=== PATIENT | female | born 1955 | race Caucasian/White ===

== ENCOUNTER 2019-07-23 22:22 | Inpatient (IN) | payer BC, OTHER ==
[2019-07-23] MEDS ORDERED: Ondansetron 4 MG/2 ML SDV IVPUSH ONE (22:34)
[2019-07-23] MEDS: Sodium Chloride 0.9% 10 ML Syringe FLUSH PRN (22:47)
[2019-07-23 23:07] LABS: CHLORIDE,CL 104 mmol/L (98-107); SODIUM,NA 142 mmol/L (136-145)
[2019-07-23] MEDS ORDERED: Sodium Chloride 0.9% 1,000 ML IV ONE (23:27)
--- NOTE | 2019-07-23 23:27 | EDM.PDOC ---
ED HPI GENERAL MEDICAL PROBLEM - General Chief Complaint: Abdominal Pain Stated Complaint: ABD PAIN, VOMITING Time Seen by Provider: 07/23/19 22:56 Source of Information: Reports: Patient History Limitations: Reports: No Limitations - History of Present Illness INITIAL COMMENTS - FREE TEXT/NARRATIVE: Sudden onset of abdominal pain, nausea/emesis that started around 4 hours ago. 5 episodes of emesis. No bowel changes. Feels constipated. Has chronic constipation and takes laxatives every few days. No fevers. Has not had similar pain/emesis before related to her constipation. Pain is in entire abdomen and epigastric area. Does not really change with drinking/emesis. Denies other pain complaints. No HEENT changes such as headache/vision change/ sinus pain/sore throat/runny nose. No Resp changes such as new cough/wheeze/SOB. Recently treated for pneumonia with Zpack but says that symptoms almost gone. No CV changes such as palpitations/chest pain/dizziness No UTI changes/flank pain/hematuria. No body aches/neuro changes. Onset: Sudden - Related Data Allergies Allergy/AdvReac Type Severity Reaction Status Date / Time No Known Allergies Allergy Verified 07/23/19 22:48 Home Meds: Home Meds Albuterol Sulfate [Albuterol Sulfate Hfa] 1 - 2 inh INH Q4H PRN 07/23/19 [ History] Alendronate Sodium 70 mg PO Q7D 07/23/19 [History] Benazepril [Lotensin] 10 mg PO DAILY 07/23/19 [History] Cyclobenzaprine [Flexeril] 10 mg PO TID PRN 07/23/19 [History] Fluticasone/Salmeterol [Advair 250-50 Diskus] 1 inh INH BID 07/23/19 [History] Lactobacillus Rhamnosus GG [Culturelle] 1 cap PO DAILY 07/23/19 [History] Tiotropium [place] [Spiriva Respimat] 2 inh INH DAILY 07/23/19 [History] Past Medical History Cardiovascular History: Reports: Hypertension Respiratory History: Reports: COPD Gastrointestinal History: Reports: Chronic Constipation Musculoskeletal History: Reports: Back Pain, Chronic (scoliosis) Social & Family History - Tobacco Use Smoking Status *Q: Former Smoker - Caffeine Use Caffeine Use: Reports: Tea (Quit soda consumption a week ago) - Alcohol Use Alcohol Use History: No - Recreational Drug Use Recreational Drug Use: No Drug Use in Last 12 Months: No ED ROS GENERAL - Review of Systems Review Of Systems: Comprehensive ROS is negative, except as noted in HPI. ED EXAM, GENERAL - Physical Exam Exam: See Below Exam Limited By: No Limitations General Appearance: Alert, Mild Distress Eye Exam: Bilateral Eye: EOMI, PERRL Ears: Hearing Grossly Normal Nose: No: Nasal Deformity, Nasal Swelling, Nasal Drainage Throat/Mouth: Normal Lips, Normal Voice, No Airway Compromise Head: Atraumatic, Normocephalic Neck: Supple, Full Range of Motion Respiratory/Chest: No Respiratory Distress, Lungs Clear, Normal Breath Sounds, No Accessory Muscle Use, Chest Non-Tender Cardiovascular: Normal Peripheral Pulses, Regular Rate, Rhythm, No Edema, No Murmur GI/Abdominal: No Distention, Tender (tender throughout entire abdomen. Slightly worse LLQ and periumbilically. ), Abnormal Bowel Sounds (decreased throughout). No: Guarding, Rigid, Rebound (Female) Exam: Deferred Rectal (Female) Exam: Deferred Extremities: Normal Range of Motion, Normal Capillary Refill Neurological: Alert, Oriented, Normal Cognition Psychiatric: Normal Affect, Normal Mood Skin Exam: Warm, Dry, Intact, Normal Color EKG INTERPRETATION EKG Date: 07/23/19 Time: 23:07 Rhythm: NSR Rate (Beats/Min): 72 [place]: Normal P-Wave: Present QRS: LBBB ST-T: Other (no obvious ST changes suggestive of ischemia noted) QT: Normal Comparison: NA - No Prior EKG Course - Vital Signs Last Recorded V/S: Last Vital Signs Temp 35.7 C L 07/23/19 22:25 Pulse 79 07/23/19 22:25 Resp 20 07/23/19 22:25 BP 109/88 07/23/19 22:25 Pulse Ox - Orders/Labs/Meds Orders: Active Orders 24 hr Category Date Time Status EKG Documentation Completion [RC] ASDIRECTED Care 07/23/19 23:03 Active Abdomen 2V AP Flat Upright [CR] Stat Exams 07/23/19 22:35 Taken TROPONIN I [CHEM] Stat Lab 07/23/19 23:10 Ordered UA W/MICROSCOPIC [URIN] Stat Lab 07/23/19 23:00 Results Sodium Chloride 0.9% [Saline Flush] Med 07/23/19 22:34 Active 10 ml FLUSH ASDIRECTED PRN Saline Lock Insert [OM.PC] Routine Oth 07/23/19 22:34 Ordered Medication Orders Sodium Chloride (Saline Flush) 10 ml FLUSH ASDIRECTED PRN PRN Reason: Keep Vein Open Last Admin: 07/23/19 22:47 Dose: 10 ml Labs: Laboratory Tests 07/23/19 07/23/19 07/23/19 Range/Units 22:40 22:40 23:00 WBC 25.7 H (4.0-10.2) K/uL RBC 4.94 (3.77-5.09) M/uL Hgb 14.3 (11.7-15.5) g/dL Hct 43.7 (34.0-46.0) % MCV 88.5 (84.0-98.0) fL MCH 28.9 (28.2-33.3) pg MCHC 32.7 (31.7-36.0) g/dL RDW 12.9 (11.2-14.1) % Plt Count 406 H (150-350) K/uL Neut % (Auto) 90.6 H (45.0-80.0) % Lymph % (Auto) 5.3 L (10.0-50.0) % [place] % (Auto) 3.4 (2.0-14.0) % Eos % (Auto) 0.6 (0.0-5.0) % Baso % (Auto) 0.1 (0.0-2.0) % Neut # (Auto) 23.27 H (1.40-7.00) K/uL Lymph # (Auto) 1.37 (0.50-3.50) K/uL [place] # (Auto) 0.87 (0.00-1.00) K/uL Eos # (Auto) 0.16 (0.00-0.50) K/uL Baso # (Auto) 0.02 (0.00-0.20) K/uL Sodium 142 (136-145) mmol/L Potassium 4.4 (3.5-5.1) mmol/L Chloride 104 (98-107) mmol/L Carbon Dioxide 23.8 (21.0-32.0) mmol/L BUN 26 H (7-18) mg/dL Creatinine 0.97 (0.51-1.17) mg/dL Est Cr Clr Drug Dosing TNP Estimated GFR (MDRD) 58 mL/min Glucose 162 H (74-106) mg/dL Calcium 9.5 (8.5-10.1) mg/dL Total Bilirubin 0.4 (0.2-1.0) mg/dL AST 12 L (15-37) U/L ALT 22 (12-78) U/L Alkaline Phosphatase 76 (46-116) IU/L Total Protein 7.5 (6.4-8.2) g/dL Albumin 3.9 (3.4-5.0) g/dL Urine Color Yellow Urine Appearance Clear Urine pH 5.5 (5.0-9.0) Ur Specific Media 1.025 (1.005-1.030) Urine Protein Trace H (NEGATIVE) mg/dL Urine Glucose (UA) Negative (NEGATIVE) mg/dL Urine Ketones 40 H (NEGATIVE) mg/dL Urine Occult Blood Trace-intact H (NEGATIVE) Urine Nitrite Negative (NEGATIVE) Urine Bilirubin Small H (NEGATIVE) Urine Urobilinogen 0.2 (0.2-1.0) E.U./dL Ur Leukocyte Esterase Negative (NEGATIVE) Meds: Medications Generic Name Dose Route Start Last Admin Trade Name Freq PRN Reason Stop Dose Admin Sodium Chloride 10 ml 07/23/19 22:34 07/23/19 22:47 Saline Flush FLUSH 10 ml ASDIRECTED PRN Administration Keep Vein Open Discontinued Medications Generic Name Dose Route Start Last Admin Trade Name Freq PRN Reason Stop Dose Admin Ondansetron HCl 4 mg 07/23/19 22:34 07/23/19 22:44 Zofran IVPUSH 07/23/19 22:35 4 mg ONETIME ONE Administration - Radiology Interpretation Free Text/Narrative:: Plain films of abdomen show several air/fluid levels. No sign of acute obstruction noted. Large amount stool present. - Re-Assessments/Exams Free Text/Narrative Re-Assessment/Exam: 07/23/19 23:37 Patient received IV Zofran and basic labs/xray ordered. Troponin/Chem overall unremarkable. White count elevated to 25. UA showed ketones but did not suggest UTI. Lactic acid added. Differential discussed with patient. Given abrupt onset of symptoms/emesis this could be viral in nature/gastroenteritis. It does seem to be a bit severe to be due to constipation. Currently discomfort in abdomen is crampy and widespread. It does not localize to the RLQ. CT of abdomen discussed with patient to rule out appy/other acute process. She declined this at this time and prefers to wait to see if symptoms change/improve /worsen. Just had recent chest CT as part of her pneumonia workup. She is willing to be admitted observation however for IV fluids along with pain/nausea control. 07/23/19 23:56 Lactic acid normal Departure - Departure Time of Disposition: 23:41 Disposition: Refer to Observation Condition: Good Clinical Impression: Abdominal pain Qualifiers: Abdominal location: generalized Qualified Code(s): R10.84 - Generalized abdominal pain - Discharge Information *PRESCRIPTION DRUG MONITORING PROGRAM REVIEWED*: Not Applicable *COPY OF PRESCRIPTION DRUG MONITORING REPORT IN PATIENT BERNARDO: Not Applicable Referrals: Da Buchanan MD [Primary Care Provider] - Sepsis Event Note - Evaluation Sepsis Screening Result: No Definite Risk - Focused Exam Vital Signs: Vital Signs Temp Pulse Resp BP 07/23/19 22:25 35.7 C L 79 20 109/88 Date Exam was Performed: 07/23/19 Time Exam was Performed: 23:14 - Problem List & Annotations (1) Abdominal pain SNOMED Code(s): 21485183 Code(s): R10.9 - UNSPECIFIED ABDOMINAL PAIN Status: Acute Priority: High Onset Date: 07/23/19 Annotation/Comment:: Elevated white count. No fever. Emesis but no bowel changes. Declines CT at this time. Would like a laxitive to see if having bowel movement improves pain. Cannot rule out viral gastroenteritis or other potential causes for symptoms. Consider CT tomorrow if no signicant improvement is noted. Qualifiers: Abdominal location: generalized Qualified Code(s): R10.84 - Generalized abdominal pain (2) Chronic constipation SNOMED Code(s): 602652466 Code(s): K59.09 - OTHER CONSTIPATION Status: Chronic Priority: High Annotation/Comment:: Stool noted on xray. Patient requests laxitive as she feels this pain could be related to constipation issues. Consider laxative if emesis improves. Observe for changes (3) COPD (chronic obstructive pulmonary disease) SNOMED Code(s): 25542345 Code(s): J44.9 - CHRONIC OBSTRUCTIVE PULMONARY DISEASE, UNSPECIFIED Status : Chronic Priority: Low Annotation/Comment:: Recent pneumonia. Patient finished course of Z-pack. Has improved significantly per self report. Continue patient's usual meds. Qualifiers: COPD type: emphysema (4) Chronic back pain SNOMED Code(s): 199461686 Code(s): M54.9 - DORSALGIA, UNSPECIFIED; G89.29 - OTHER CHRONIC PAIN Status : Chronic Priority: Low Annotation/Comment:: stable at this time Qualifiers: Back pain location: low back pain (5) Scoliosis SNOMED Code(s): 642983155 Code(s): M41.9 - SCOLIOSIS, UNSPECIFIED Status: Chronic Priority: Low Qualifiers: Scoliosis type: unspecified scoliosis Spinal region: thoracolumbar Qualified Code(s): M41.9 - Scoliosis, unspecified (6) HTN (hypertension) SNOMED Code(s): 02081092 Code(s): I10 - ESSENTIAL (PRIMARY) HYPERTENSION Status: Chronic Priority : Low Annotation/Comment:: observe trends Qualifiers: Hypertension type: essential hypertension Qualified Code(s): I10 - Essential (primary) hypertension - Problem List Review Problem List Initiated/Reviewed/Updated: Yes - My Orders Last 24 Hours: My Active Orders 07/23/19 22:34 Sodium Chloride 0.9% [Saline Flush] 10 ml FLUSH ASDIRECTED PRN Saline Lock Insert [OM.PC] Routine 07/23/19 22:35 Abdomen 2V AP Flat Upright [CR] Stat 07/23/19 23:00 UA W/MICROSCOPIC [URIN] Stat 07/23/19 23:03 EKG Documentation Completion [RC] ASDIRECTED 07/23/19 23:10 TROPONIN I [CHEM] Stat - Assessment/Plan Admission H&P: Please use this note as an admission H&P Last 24 Hours: My Active Orders 07/23/19 22:34 Sodium Chloride 0.9% [Saline Flush] 10 ml FLUSH ASDIRECTED PRN Saline Lock Insert [OM.PC] Routine 07/23/19 22:35 Abdomen 2V AP Flat Upright [CR] Stat 07/23/19 23:00 UA W/MICROSCOPIC [URIN] Stat 07/23/19 23:03 EKG Documentation Completion [RC] ASDIRECTED 07/23/19 23:10 TROPONIN I [CHEM] Stat Assessment:: As above Patient stable and suitable for general supervision. Plan: as above IV fluids/Zofran/pain management. Observe for changes.
[2019-07-23] MEDS ORDERED: Morphine 2 MG/ML Syringe IVPUSH ONE (23:28)
[2019-07-24] MEDS ORDERED: Magnesium Citrate Solution 296 ML Bottle PO ONE ×2 (00:09→14:47)
[2019-07-24] MEDS ORDERED: Polyethylene Glycol 3350 Powder 17 GM Packet PO ONE (00:10)
[2019-07-24] MEDS ORDERED: Sodium Chloride 0.9% 1,000 ML IV ONE (00:11)
[2019-07-24] MEDS ORDERED: Cyclobenzaprine 10 MG Tab PO PRN (00:12)
[2019-07-24] MEDS ORDERED: Alendronate 70 MG Tab PO SCH (00:15)
[2019-07-24] MEDS: Albuterol 8 GM Inhaler INH PRN ×5 (00:49→22:23)
[2019-07-24] MEDS: Formoterol/Mometasone 200-5 MCG 8.8 GM Inhaler IH SCH ×3 (00:49→17:08)
[2019-07-24] MEDS ORDERED: Polyethylene Glycol 3350 Powder 17 GM Packet ONE (03:41)
[2019-07-24] MEDS ORDERED: Magnesium Citrate Solution 296 ML Bottle ONE (03:42)
[2019-07-24] MEDS: Lisinopril 10 MG Tab PO SCH (08:28)
[2019-07-24] MEDS: Lactobacillus Rhamnosus GG (Probiotic) Cap PO SCH (08:28)
[2019-07-24] MEDS: Tiotropium Inhaler 18 MCG Inhalation Powder Cap Kit of 5 INH SCH (08:29)
[2019-07-24] MEDS: Ondansetron 4 MG/2 ML SDV IVPUSH PRN ×2 (08:29→14:48)
[2019-07-24] MEDS: Sodium Chloride 0.9% 10 ML Syringe FLUSH PRN ×2 (08:30→15:28)
[2019-07-24] MEDS: Morphine 2 MG/ML Syringe IVPUSH PRN ×3 (08:30→22:15)
[2019-07-24] MEDS ORDERED: Iopamidol 612 MG/ML 100 ML Bottle IVPUSH ONE (10:00)
[2019-07-24] MEDS ORDERED: Diatrizoate Meglumine/Diatrizoate Sodium 37% 30 ML Bottle PO ONE (10:30)
--- NOTE | 2019-07-24 14:35 | PCM.SN ---
- Free Text/Narrative Note: Pancreatitis confirmed by CT. Patient does not wish to be transferred. Admit from observation status for continued IV hydration and pain control. Consider NG tube if emesis returns. NPO/Ice chips only.
[2019-07-24] MEDS: Sodium Chloride 0.9% 1,000 ML IV SCH ×2 (14:49→21:39)
[2019-07-24] MEDS ORDERED: Promethazine 25 MG/ML SDV IM PRN (15:00)
[2019-07-24] MEDS: Pantoprazole 40 MG Vial IVPUSH SCH (15:25)
[2019-07-24] MEDS: Bisacodyl 5 MG Tab PO PRN (15:25)
[2019-07-24] MEDS: Famotidine 20 MG/2 ML SDV IVPUSH SCH (15:25)
[2019-07-24] MEDS ORDERED: Bisacodyl 10 MG Supp RECTAL PRN (21:51)
[2019-07-25] MEDS: Ketorolac 30 MG/ML SDV IVPUSH PRN ×2 (01:26→07:41)
[2019-07-25] MEDS: Sodium Chloride 0.9% 10 ML Syringe FLUSH PRN ×4 (01:26→23:52)
[2019-07-25] MEDS: Albuterol/Ipratropium 3.0-0.5 MG/3 ML Neb Soln NEB PRN (01:43)
[2019-07-25] MEDS ORDERED: Magnesium Hydroxide 400 MG/5 ML Susp 30 ML Cup PO PRN (01:46)
[2019-07-25] MEDS: Morphine 2 MG/ML Syringe IVPUSH PRN (04:21)
[2019-07-25] MEDS: Sodium Chloride 0.9% 1,000 ML IV SCH ×2 (04:24→11:47)
[2019-07-25 07:42] LABS: CHLORIDE,CL 106 mmol/L (98-107); SODIUM,NA 140 mmol/L (136-145)
[2019-07-25] MEDS: Enoxaparin 30 MG/0.3 ML Syringe SUBCUT SCH (07:46)
[2019-07-25] MEDS: Pantoprazole 40 MG Vial IVPUSH SCH ×2 (07:47→20:07)
[2019-07-25] MEDS: Famotidine 20 MG/2 ML SDV IVPUSH SCH ×2 (07:47→20:07)
[2019-07-25] MEDS: Lisinopril 10 MG Tab PO SCH (07:47)
[2019-07-25] MEDS: Lactobacillus Rhamnosus GG (Probiotic) Cap PO SCH (07:47)
[2019-07-25] MEDS: Bisacodyl 5 MG Tab PO PRN (07:49)
[2019-07-25] MEDS: Formoterol/Mometasone 200-5 MCG 8.8 GM Inhaler IH SCH ×2 (07:52→19:16)
[2019-07-25] MEDS: Tiotropium Inhaler 18 MCG Inhalation Powder Cap Kit of 5 INH SCH (07:52)
[2019-07-25] MEDS: Albuterol 8 GM Inhaler INH PRN (07:55)
[2019-07-25] MEDS ORDERED: cefTRIAXone 1 GM in Sodium Chloride 0.9% 100 ML IV SCH (11:15)
[2019-07-25] MEDS: metroNIDAZOLE/Normal Saline 500 MG in Premix Bag 1 BAG IV SCH ×2 (11:47→20:04)
--- NOTE | 2019-07-25 11:51 | PCM.PN ---
- General Info Date of Service: 07/25/19 Admission Dx/Problem (Free Text): 1. Pancreatitis 2. COPD 3. Chronic constipation Functional Status: Reports: Pain Controlled, New Symptoms (Fever), Incentive Spirometry. Denies: Tolerating Diet (Nothing by mouth), Ambulating, Urinating Pain Score: 8 (With inspiration and palpation otherwise no discomfort) - Review of Systems General: Reports: Fever, Chills. Denies: Appetite (Nothing by mouth) HEENT: Reports: No Symptoms. Denies: Ear Pain, Eye Pain, Headaches, Sinus Congestion, Sore Throat, Rhinitis, Visual Changes Pulmonary: Reports: Pleuritic Chest Pain (Left inferior secondary to pancreatitis), Cough. Denies: Shortness of Breath, Sputum, Hemoptysis, Wheezing Cardiovascular: Reports: No Symptoms. Denies: Chest Pain, Palpitations, Dyspnea on Exertion, Orthopnea, PND, Edema, Lightheadedness Gastrointestinal: Reports: Abdominal Pain, Constipation, Nausea. Denies: Decreased Appetite, Difficulty Swallowing, Hematochezia, Melena, Vomiting Genitourinary: Reports: No Symptoms. Denies: Dysuria, Frequency, Burning, Pain , Urgency, Incontinence, Hematuria, Retention, Flank Pain Musculoskeletal: Reports: No Symptoms. Denies: Neck Pain, Shoulder Pain, Arm Pain, Back Pain, Leg Pain Skin: Denies: Jaundice, Diaphoresis, Bruising, Pruritis, Rash Neurological: Reports: No Symptoms. Denies: Confusion, Numbness, Paresthesia, Tingling, Weakness Psychiatric: Reports: No Symptoms. Denies: Confusion, Agitation, Cravings, Hallucinations - Patient Data Vitals - Most Recent: Last Vital Signs Temp 37.4 C 07/25/19 08:00 Pulse 98 07/25/19 08:00 Resp 19 07/25/19 08:00 BP 123/76 07/25/19 08:00 Pulse Ox 96 07/25/19 08:00 Vital Signs - 24 hr 07/24/19 07/24/19 07/24/19 16:00 18:00 20:00 Temperature [ 38.6 C H 38.2 C H 38.2 C H Temporal] Pulse, 93 97 95 Peripheral [ Right Pulse Oximetry] Respiratory 17 16 16 Rate Blood Pressure Blood Pressure 144/70 H 127/78 143/86 H [Right Upper Arm] O2 Sat by Pulse 93 L 93 L 93 L Oximetry O2 Sat by Pulse Oximetry [ Nasal Cannula] 07/25/19 07/25/19 07/25/19 00:00 01:45 04:00 Temperature [ 38.2 C H 37.2 C Temporal] Pulse, 114 H 105 H Peripheral [ Right Pulse Oximetry] Respiratory 32 H 20 Rate Blood Pressure Blood Pressure 129/84 123/72 [Right Upper Arm] O2 Sat by Pulse 88 L 95 Oximetry O2 Sat by Pulse 88 L Oximetry [ Nasal Cannula] 07/25/19 07/25/19 07:47 08:00 Temperature [ 37.4 C Temporal] Pulse, 98 Peripheral [ Right Pulse Oximetry] Respiratory 19 Rate Blood Pressure 123/76 Blood Pressure 123/76 [Right Upper Arm] O2 Sat by Pulse 96 Oximetry O2 Sat by Pulse Oximetry [ Nasal Cannula] Weight - Most Recent: 55.066 kg I&O - Last 24 Hours: Intake & Output 07/24/19 07/25/19 07/25/19 22:59 06:59 14:59 Intake Total 2363 Output Total 900 300 Balance -900 2363 -300 Imaging Impressions - Last 24 Hours: Acute abdominal x-rays shows evidence of moderate to severe diffuse stool, however no fluid levels, free air, ileus, or obstruction. No cardiomegaly or CHF however mild left pleural effusion. Moderate COPD changes with no other significant pulmonary infiltrates, pneumothorax, etc. Moderate scoliosis and osteoarthritic changes noted. Also note status post cholecystectomy with surgical clips in right upper quadrant. Lab Results Last 24 Hours: Laboratory Results - last 24 hr 07/24/19 07/24/19 07/25/19 Range/Units 14:05 14:05 07:17 WBC 20.1 H (4.0-10.2) K/uL RBC 4.56 (3.77-5.09) M/uL Hgb 13.2 (11.7-15.5) g/dL Hct 40.1 (34.0-46.0) % MCV 87.9 (84.0-98.0) fL MCH 28.9 (28.2-33.3) pg MCHC 32.9 (31.7-36.0) g/dL RDW 12.9 (11.2-14.1) % Plt Count 309 D (150-350) K/uL Neut % (Auto) 89.2 H (45.0-80.0) % Lymph % (Auto) 5.9 L (10.0-50.0) % [place] % (Auto) 4.9 (2.0-14.0) % Eos % (Auto) 0.0 (0.0-5.0) % Baso % (Auto) 0.0 (0.0-2.0) % Neut # (Auto) 17.91 H (1.40-7.00) K/uL Lymph # (Auto) 1.18 (0.50-3.50) K/uL [place] # (Auto) 0.98 (0.00-1.00) K/uL Eos # (Auto) 0.01 (0.00-0.50) K/uL Baso # (Auto) 0.01 (0.00-0.20) K/uL PT 10.8 (9.5-12.0) SEC INR 1.1 Sodium (136-145) mmol/L Potassium (3.5-5.1) mmol/L Chloride (98-107) mmol/L Carbon Dioxide (21.0-32.0) mmol/L BUN (7-18) mg/dL Creatinine (0.51-1.17) mg/dL Est Cr Clr Drug Dosing mL/min Estimated GFR (MDRD) mL/min Glucose (74-106) mg/dL Calcium (8.5-10.1) mg/dL Total Bilirubin (0.2-1.0) mg/dL AST (15-37) U/L ALT (12-78) U/L Alkaline Phosphatase (46-116) IU/L Total Protein (6.4-8.2) g/dL Albumin (3.4-5.0) g/dL Amylase 1279 H (25-115) U/L Lipase > 1500 H (73-393) U/L 07/25/19 07/25/19 Range/Units 07:17 07:17 WBC 22.9 H (4.0-10.2) K/uL RBC 4.32 (3.77-5.09) M/uL Hgb 12.6 (11.7-15.5) g/dL Hct 38.5 (34.0-46.0) % MCV 89.1 (84.0-98.0) fL MCH 29.2 (28.2-33.3) pg MCHC 32.7 (31.7-36.0) g/dL RDW 13.1 (11.2-14.1) % Plt Count 300 (150-350) K/uL Neut % (Auto) 88.5 H (45.0-80.0) % Lymph % (Auto) 5.8 L (10.0-50.0) % [place] % (Auto) 5.5 (2.0-14.0) % Eos % (Auto) 0.2 (0.0-5.0) % Baso % (Auto) 0.0 (0.0-2.0) % Neut # (Auto) 20.22 H (1.40-7.00) K/uL Lymph # (Auto) 1.33 (0.50-3.50) K/uL [place] # (Auto) 1.25 H (0.00-1.00) K/uL Eos # (Auto) 0.04 (0.00-0.50) K/uL Baso # (Auto) 0.01 (0.00-0.20) K/uL PT (9.5-12.0) SEC INR Sodium 140 (136-145) mmol/L Potassium 4.3 (3.5-5.1) mmol/L Chloride 106 (98-107) mmol/L Carbon Dioxide 24.0 (21.0-32.0) mmol/L BUN 21 H (7-18) mg/dL Creatinine 0.69 (0.51-1.17) mg/dL Est Cr Clr Drug Dosing 72.06 mL/min Estimated GFR (MDRD) > 60 mL/min Glucose 86 (74-106) mg/dL Calcium 8.1 L (8.5-10.1) mg/dL Total Bilirubin 0.6 (0.2-1.0) mg/dL AST 35 (15-37) U/L ALT 33 (12-78) U/L Alkaline Phosphatase 71 (46-116) IU/L Total Protein 5.7 L (6.4-8.2) g/dL Albumin 2.7 L (3.4-5.0) g/dL Amylase 759 H (25-115) U/L Lipase 3405 H (73-393) U/L Blood Cultures 2 were collected Additional repeat UA with culture and sensitivity already ordered today with collection pending [place] Results Last 24 Hours: Microbiology 07/25/19 09:45 Group A Streptococcus Rapid Screen - Final Throat NEGATIVE STREP A SCREEN REFERENCE RANGE: NEGATIVE 07/25/19 09:45 Influenza Type A Antigen Screen - Final Nasal, Unspecified NEGATIVE INFLUENZA A VIRUS AG REFERENCE RANGE: NEGATIVE Influenza Type B Antigen Screen - Final NEGATIVE INFLUENZA B VIRUS AG REFERENCE RANGE: NEGATIVE Specimen for COVID-19 collected Med Orders - Current: Current Medications Albuterol (Proventil Neb Soln) 2.5 mg INH Q2H PRN PRN Reason: SHORTNESS OF BREATH Albuterol/Ipratropium (Duoneb 3.0-0.5 Mg/3 Ml) 3 ml NEB Q4HRRT PRN PRN Reason: Dyspnea Last Admin: 07/25/19 01:43 Dose: 3 ml Albuterol/Ipratropium (Duoneb 3.0-0.5 Mg/3 Ml) 3 ml NEB Q6HRRT [facility] Alendronate Sodium (Fosamax) 70 mg PO Q7D [facility] Last Admin: 07/24/19 00:53 Dose: Not Given Bisacodyl (Dulcolax) 5 mg PO DAILY PRN PRN Reason: Constipation Last Admin: 07/25/19 07:49 Dose: 5 mg Bisacodyl (Dulcolax) 10 mg RECTAL BID PRN PRN Reason: Constipation Last Admin: 07/24/19 22:15 Dose: 10 mg Cyclobenzaprine HCl (Flexeril) 10 mg PO TID PRN PRN Reason: Muscle Spasm Enoxaparin Sodium (Lovenox) 30 mg SUBCUT DAILY [facility] Last Admin: 07/25/19 07:46 Dose: 30 mg Famotidine (Pepcid) 20 mg IVPUSH Q12H [facility] Sodium Chloride (Normal Saline) 1,000 mls @ 150 mls/hr IV ASDIRECTED [facility] Last Admin: 07/25/19 04:24 Dose: 150 mls/hr Metronidazole 500 mg/ Premix 100 mls @ 100 mls/hr IV Q8H [facility] Ceftriaxone Sodium 1 gm/ (Sodium Chloride) 100 mls @ 200 mls/hr IV Q12H [facility] Potassium Chloride/Dextrose/Sod Cl (D5 1/2 Ns W/ 20 Meq/L Kcl) 1,000 mls @ 100 mls/hr IV ASDIRECTED [facility] Ketorolac Tromethamine (Toradol) 30 mg IVPUSH Q6H PRN PRN Reason: Pain (moderate 4-6) Last Admin: 07/25/19 07:41 Dose: 30 mg Lactobacillus Rhamnosus (Culturelle) 1 cap PO DAILY [facility] Last Admin: 07/25/19 07:47 Dose: 1 cap Lisinopril (Prinivil) 10 mg PO DAILY [facility] Last Admin: 07/25/19 07:47 Dose: 10 mg Magnesium Hydroxide (Milk Of Magnesia) 30 ml PO BID PRN PRN Reason: Constipation Last Admin: 07/25/19 02:02 Dose: 30 ml Mometasone Furoate/Formoterol Fumar (Dulera 200-5 Mcg) 2 puff IH BID [facility] Last Admin: 07/25/19 07:52 Dose: 2 inh Morphine Sulfate (Morphine) 2 mg IVPUSH Q2H PRN PRN Reason: Pain Last Admin: 07/25/19 04:21 Dose: 2 mg Ondansetron HCl (Zofran) 4 mg IVPUSH Q6H PRN PRN Reason: Nausea/Vomiting Last Admin: 07/24/19 14:48 Dose: 4 mg Pantoprazole Sodium (Protonix Iv) 40 mg IVPUSH Q12H [facility] Polyethylene Glycol (Miralax) 17 gm PO DAILY [facility] Sodium Chloride (Saline Flush) 10 ml FLUSH ASDIRECTED PRN PRN Reason: Keep Vein Open Last Admin: 07/25/19 01:26 Dose: 10 ml Tiotropium [place] (Spiriva Handihaler) 18 mcg INH DAILY [facility] Last Admin: 07/25/19 07:52 Dose: 18 mcg Discontinued Medications Albuterol (Ventolin Hfa) 0 gm INH Q4H PRN PRN Reason: Wheezing Last Admin: 07/25/19 07:55 Dose: 1 inh Diatrizoate Meglum/Diatrizoate Sod (Gastrografin 37%) 30 ml PO ONETIME ONE Stop: 07/24/19 10:31 Last Admin: 07/24/19 11:35 Dose: 30 ml Famotidine (Pepcid) 20 mg IVPUSH DAILY [facility] Last Admin: 07/25/19 07:47 Dose: 20 mg Sodium Chloride (Normal Saline) 1,000 mls @ 999 mls/hr IV .BOLUS ONE Stop: 07/24/19 00:27 Last Admin: 07/23/19 23:32 Dose: 999 mls/hr Sodium Chloride (Normal Saline) 1,000 mls @ 200 mls/hr IV .BOLUS ONE Stop: 07/24/19 05:10 Last Admin: 07/24/19 00:51 Dose: 200 mls/hr Ceftriaxone Sodium 1 gm/ (Sodium Chloride) 100 mls @ 200 mls/hr IV [id number] ROLAND Iopamidol (Isovue-300 (61%)) 100 ml IVPUSH ONETIME ONE Stop: 07/24/19 10:01 Last Admin: 07/24/19 11:35 Dose: 100 ml Magnesium Citrate (Citrate Of Magnesia) 296 ml PO ONETIME ONE Stop: 07/24/19 00:10 Last Admin: 07/24/19 03:48 Dose: 296 ml Magnesium Citrate (Citrate Of Magnesia) Confirm Administered Dose 296 ml .ROUTE .STK-MED ONE Stop: 07/24/19 03:43 Last Admin: 07/24/19 03:49 Dose: Not Given Magnesium Citrate (Citrate Of Magnesia) 296 ml PO ONETIME ONE Stop: 07/24/19 14:48 Last Admin: 07/24/19 15:25 Dose: 296 ml Morphine Sulfate (Morphine) 2 mg IVPUSH ONETIME ONE Stop: 07/23/19 23:29 Last Admin: 07/23/19 23:31 Dose: 2 mg Ondansetron HCl (Zofran) 4 mg IVPUSH ONETIME ONE Stop: 07/23/19 22:35 Last Admin: 07/23/19 22:44 Dose: 4 mg Pantoprazole Sodium (Protonix Iv) 40 mg IVPUSH DAILY [facility] Last Admin: 07/25/19 07:47 Dose: 40 mg Polyethylene Glycol (Miralax) 17 gm PO ONETIME ONE Stop: 07/24/19 00:11 Last Admin: 07/24/19 03:48 Dose: 17 gm Polyethylene Glycol (Miralax) Confirm Administered Dose 17 gm .ROUTE .STK-MED ONE Stop: 07/24/19 03:42 Last Admin: 07/24/19 03:49 Dose: Not Given Promethazine HCl (Phenergan) 12.5 mg IM Q6H PRN PRN Reason: Nausea/Vomiting - Exam Quality Assessment: DVT Prophylaxis (Lovenox). No: Supplemental Oxygen, Central Line/PICC, Urine Catheter, Skin Breakdown, Restraints General: Alert, Oriented, Cooperative, No Acute Distress HEENT: Pupils Equal, Pupils Reactive, EOMI, Mucous Membr. Moist/[place]. No: Scleral Icterus Neck: Supple, Trachea Midline, No JVD, No Thyromegaly, +2 Carotid Pulse wo Bruit. No: Lymphadenopathy, Carotid Bruit Lungs: Rales (Left lower posterior), Rub (Left lower lobe) Cardiovascular: Regular Rate, Regular Rhythm, No Murmurs. No: Gallops, Rubs GI/Abdominal Exam: Normal Bowel Sounds, No Organomegaly, No Distention, No Abnormal Bruit, No Mass, Pelvis Stable, Tender (Moderate left upper quadrant). No: Guarding, Rigid, Rebound (Female) Exam: Deferred Back Exam: Other (Moderate scoliosis). No: CVA Tenderness (L), CVA Tenderness ( R), Muscle Spasm, Paraspinal Tenderness, Vertebral Tenderness Extremities: Normal Inspection, Normal Range of Motion, Non-Tender, No Pedal Edema, Normal Capillary Refill. No: Tuyet's Sign Peripheral Pulses: 2+: Radial (L), Radial (R), Dorsalis Pedis (L), Dorsalis Pedis (R) Skin: Warm, Dry, Intact. No: Rash, Ecchymosis Neurological: No New Focal Deficit Psy/Mental Status: Anxious (Moderate), Depressed (Mild). No: Agitated, Hallucinations, Withdrawal Symptoms Sepsis Event Note - Evaluation Sepsis Screening Result: No Definite Risk - Focused Exam Vital Signs: Vital Signs Temp Pulse Resp BP BP Pulse Ox Pulse Ox 07/25/19 08:00 37.4 C 98 19 123/76 96 07/25/19 07:47 123/76 07/25/19 04:00 37.2 C 105 H 20 123/72 95 07/25/19 01:45 88 L 07/25/19 00:00 38.2 C H 114 H 32 H 129/84 88 L Date Exam was Performed: 07/25/19 Time Exam was Performed: 12:01 - Problem List & Annotations (1) Pancreatitis SNOMED Code(s): 74354718 Code(s): K85.90 - ACUTE PANCREATITIS WITHOUT NECROSIS OR INFECTION, UNSP Status: Acute Priority: High Current Visit: Yes Onset Date: ~07/24/19 Qualifiers: Chronicity: acute Pancreatitis type: unspecified pancreatitis type Acute pancreatitis complication: no infection or necrosis Qualified Code(s): K85.90 - Acute pancreatitis without necrosis or infection, unspecified Annotation/Comment:: Progressive lipase elevation, although improved amylase. Abdominal pain is under relatively good control with current medical therapy, although I will change from IV morphine to IV Dilaudid secondary to previous history of open laparoscopic cholecystectomy and her chronic constipation by history. Note positive CT scan for acute pancreatitis with x-rays today showing significant constipation as above. She has not tolerated magnesium citrate to this point, although she does agree to reconsider this later today or tomorrow. Initiate MiraLAX therapy in the meantime. Note significant leukocytosis on admission, which does persist today. IV Rocephin and IV Flagyl therapy were initiated on 07/24 with additional increase of her previous IV Pepcid and IV Protonix regimen to a high-dose regimen already on 07/24. Patient will maintain nothing by mouth. No indication for NG tube to this point, although this may need to be considered by [facility] physician, which assumes care in the a.m. Repeat CT scan of the abdomen and pelvis depending on her clinical course. Low threshold for possible patient transferred to [place] for further GI consultation , workup, etc.. Note secondary left pleural effusion likely secondary to her acute pancreatitis. No chest pain or anginal type symptoms with no evidence of CHF. (2) COPD (chronic obstructive pulmonary disease) SNOMED Code(s): 51720839 Code(s): J44.9 - CHRONIC OBSTRUCTIVE PULMONARY DISEASE, UNSPECIFIED Status : Chronic Priority: Medium Current Visit: Yes Qualifiers: COPD type: emphysema Emphysema type: panlobular Qualified Code(s): J43.1 - Panlobular emphysema Annotation/Comment:: Recent pneumonia and hospitalization prior to admission, although improved prior to admission with previously completed course of Z-cecile. No direct known exposure to COVID 19, although the patient did come from [place], [place] in order to avoid infection with positive cases in this area. Per request of administration and intermediate staff patient placed in appropriate isolation with negative pressure room and COVID-19 protocol initiated. Note negative initial strep screens and influenza screens. IV Rocephin initiated as above. Note significant fever and leukocytosis since admission. Cultures 2 have been collected with urine specimen to be repeated with additional urine culture. Lactic acid level normal on admission and will be repeated on 07/25. (3) Chronic constipation SNOMED Code(s): 549867916 Code(s): K59.09 - OTHER CONSTIPATION Status: Chronic Priority: High Current Visit: Yes Annotation/Comment:: As above (4) Osteoarthritis SNOMED Code(s): 996936761 Code(s): M19.90 - UNSPECIFIED OSTEOARTHRITIS, UNSPECIFIED SITE Status: Chronic Priority: Medium Current Visit: Yes Qualifiers: Osteoarthritis location: multiple joints Osteoarthritis type: primary Qualified Code(s): M15.0 - Primary generalized (osteo)arthritis Annotation/Comment:: Stable by history including chronic low back pain with moderate scoliosis by today's x-rays as above. (5) Mixed anxiety depressive disorder SNOMED Code(s): 693107082 Code(s): F41.8 - OTHER SPECIFIED ANXIETY DISORDERS Status: Chronic Priority: Medium Current Visit: Yes Annotation/Comment:: By clinical exam today. No current medical therapy. Observe for now. (6) HTN (hypertension) SNOMED Code(s): 07649727 Code(s): I10 - ESSENTIAL (PRIMARY) HYPERTENSION Status: Chronic Priority : Medium Current Visit: Yes Qualifiers: Hypertension type: essential hypertension Qualified Code(s): I10 - Essential (primary) hypertension Annotation/Comment:: Blood pressures stable during this hospitalization. (7) Scoliosis SNOMED Code(s): 498442939 Code(s): M41.9 - SCOLIOSIS, UNSPECIFIED Status: Chronic Priority: Medium Current Visit: Yes Qualifiers: Scoliosis type: unspecified scoliosis Spinal region: thoracolumbar Qualified Code(s): M41.9 - Scoliosis, unspecified Annotation/Comment:: As above - Problem List Review Problem List Initiated/Reviewed/Updated: Yes - My Orders Last 24 Hours: My Active Orders 07/25/19 09:00 Isolation [COMM] Routine 07/25/19 09:45 CULTURE STREP A CONFIRMATION [RM] Stat STREP SCRN A RAPID W CULT CONF [RM] Stat 07/25/19 11:08 CULTURE BLOOD [BC] Stat CULTURE BLOOD [BC] Stat Blood Culture x2 Reflex Set [OM.PC] Urgent 07/25/19 11:10 CULTURE URINE [RM] Routine URINALYSIS W/MICROSCOPIC [UA W/MICROSCOPIC] [URIN] Routine 07/25/19 11:15 Famotidine [Pepcid] 20 mg IVPUSH Q12H Pantoprazole [ProTONIX IV] 40 mg IVPUSH Q12H metroNIDAZOLE/Normal Saline [Flagyl 500 MG in NS 100 ML] 500 mg Premix Bag 1 bag IV Q8H 07/25/19 11:18 cefTRIAXone [Rocephin] 1 gm Sodium Chloride 0.9% [Normal Saline] 100 ml IV Q12H 07/25/19 11:19 RT Aerosol Therapy [RC] ASDIRECTED Albuterol [Proventil Neb Soln] 2.5 mg INH Q2H PRN 07/25/19 11:24 Communication Order [RC] ROUTINE Intake and Output Strict [RC] ASDIRECTED 07/25/19 11:29 Communication Order [RC] ROUTINE 07/25/19 11:30 D5 1/2 NS w/ 20 mEq/L KCl 1,000 ml IV ASDIRECTED polyethylene glycoL 3350 [MiraLAX] 17 gm PO DAILY 07/25/19 14:00 Albuterol/Ipratropium [DuoNeb 3.0-0.5 MG/3 ML] 3 ml NEB Q6HRRT 07/26/19 05:11 AMYLASE [CHEM] Routine CBC WITH AUTO DIFF [HEME] Routine COMPREHENSIVE METABOLIC PN,CMP [CHEM] Routine LACTATE SEPSIS W/ REFLEX [CHEM] Routine LIPASE [CHEM] Routine MAGNESIUM [CHEM] Routine - Assessment Assessment:: As above - Plan Plan:: As above. Extensive precautions were given to the patient, who is in agreement with the treatment plan. The patient will require about 2-3 days of inpatient/ acute care secondary to multiple health problems as above with possible hospital transfer to [place] as above. [facility] physician assumes care in the a.m..
[2019-07-25] MEDS: Polyethylene Glycol 3350 Powder 17 GM Packet PO SCH (11:55)
[2019-07-25] MEDS ORDERED: Bisacodyl 5 MG Tab PO ONE (12:20)
[2019-07-25] MEDS ORDERED: Bisacodyl 5 MG Tab ONE (12:22)
[2019-07-25] MEDS: Bisacodyl 5 MG Tab PO SCH (13:00)
[2019-07-25] MEDS: Ketorolac 30 MG/ML SDV IVPUSH SCH ×2 (13:19→20:07)
[2019-07-25] MEDS: cefTRIAXone 1 GM in Sodium Chloride 0.9% 100 ML IV SCH ×2 (13:21→23:51)
[2019-07-25] MEDS: Albuterol/Ipratropium 3.0-0.5 MG/3 ML Neb Soln NEB SCH ×2 (16:45→20:02)
[2019-07-25] MEDS: HYDROmorphone 1 MG/ML Syringe IVPUSH PRN ×2 (16:54→23:50)
[2019-07-25] MEDS ORDERED: Polyethylene Glycol 3350 Powder 17 GM Packet PO ONE (20:07)
[2019-07-25] MEDS ORDERED: Magnesium Citrate Solution 296 ML Bottle PO ONE (20:08)
[2019-07-25] MEDS: D5 1/2 NS w/ 20 mEq/L KCl 1,000 ML IV SCH (21:33)
[2019-07-25] MEDS: Albuterol 0.083% 2.5 MG/3 ML Neb Soln INH PRN (23:47)
[2019-07-26] MEDS ORDERED: Metoclopramide 10 MG/2 ML SDV IVPUSH PRN (02:59)
[2019-07-26] MEDS: Albuterol/Ipratropium 3.0-0.5 MG/3 ML Neb Soln NEB SCH ×3 (03:01→13:27)
[2019-07-26] MEDS: metroNIDAZOLE/Normal Saline 500 MG in Premix Bag 1 BAG IV SCH ×2 (03:04→11:49)
[2019-07-26] MEDS: Ketorolac 30 MG/ML SDV IVPUSH SCH ×3 (03:04→13:26)
[2019-07-26] MEDS: Sodium Chloride 0.9% 10 ML Syringe FLUSH PRN ×4 (03:07→13:27)
[2019-07-26] MEDS ORDERED: Lactulose Soln 10 GM/15 ML 30 ML UD Cup PO ONE (03:11)
--- NOTE | 2019-07-26 03:16 | PCM.SN ---
- Free Text/Narrative Note: Patient without bowel movement to this point and once again refusing Magnesium citrate/Miralax combination. Attempt lactulose and IV Reglan also ordered. Patient concerned about Toradol and possible COVID 19, however [place] findings concerning NSAIDS effect on this infection have been widely disputed. Still trying to avoid excessive narcotics in order to prevent obstruction in light of patient's significant constipation history. NG tube ordered but patient deciding , if she wants this. Delay suction until about 5:30, if she agrees to NG. Acute Abdominal xrays later this AM.
[2019-07-26] MEDS: Albuterol 0.083% 2.5 MG/3 ML Neb Soln INH PRN (05:24)
[2019-07-26 07:45] LABS: CHLORIDE,CL 107 mmol/L (98-107); SODIUM,NA 139 mmol/L (136-145)
[2019-07-26] MEDS: Polyethylene Glycol 3350 Powder 17 GM Packet PO SCH (08:05)
[2019-07-26] MEDS: Pantoprazole 40 MG Vial IVPUSH SCH (08:09)
[2019-07-26] MEDS: Famotidine 20 MG/2 ML SDV IVPUSH SCH (08:15)
[2019-07-26] MEDS: Formoterol/Mometasone 200-5 MCG 8.8 GM Inhaler IH SCH (08:20)
[2019-07-26] MEDS: Lactobacillus Rhamnosus GG (Probiotic) Cap PO SCH (08:20)
[2019-07-26] MEDS: Bisacodyl 5 MG Tab PO SCH (08:20)
[2019-07-26] MEDS: Tiotropium Inhaler 18 MCG Inhalation Powder Cap Kit of 5 INH SCH (08:22)
[2019-07-26] MEDS: Enoxaparin 30 MG/0.3 ML Syringe SUBCUT SCH (08:40)
[2019-07-26] MEDS: Lisinopril 10 MG Tab PO SCH (08:41)
[2019-07-26] MEDS: D5 1/2 NS w/ 20 mEq/L KCl 1,000 ML IV SCH (09:14)
[2019-07-26] MEDS ORDERED: Iopamidol 612 MG/ML 100 ML Bottle IVPUSH ONE (10:45)
[2019-07-26] MEDS: HYDROmorphone 1 MG/ML Syringe IVPUSH PRN (11:15)
[2019-07-26] MEDS: Albuterol/Ipratropium 3.0-0.5 MG/3 ML Neb Soln NEB PRN (11:56)
[2019-07-26] MEDS: cefTRIAXone 1 GM in Sodium Chloride 0.9% 100 ML IV SCH (13:27)
--- NOTE | 2019-07-26 14:08 | PCM.DCSUM1 ---
Discharge Summary - Hospital Course Free Text/Narrative:: Pt admitted with pancreatitis Now with increasing respiratory issues and total body edema Pt with increased SOB See CT of chest and abd/pelvis Brief History: See CT of chest, abdomen and pelvis D/W Dr Richardson [facility] hospitalist Will accept in transfer - Discharge Data Discharge Date: 07/26/19 Discharge Disposition: DC/Tfer to Acute Hospital 02 Condition: Fair - Referral to Home Health Primary Care Physician: Da Buchanan MD - Discharge Diagnosis/Problem(s) (1) Pancreatitis SNOMED Code(s): 14791116 ICD Code: K85.90 - ACUTE PANCREATITIS WITHOUT NECROSIS OR INFECTION, UNSP Status: Acute Priority: High Current Visit: Yes Onset Date: ~07/24/19 Problem Details: Progressive lipase elevation, although improved amylase. Abdominal pain is under relatively good control with current medical therapy, although I will change from IV morphine to IV Dilaudid secondary to previous history of open laparoscopic cholecystectomy and her chronic constipation by history. Note positive CT scan for acute pancreatitis with x-rays today showing significant constipation as above. She has not tolerated magnesium citrate to this point, although she does agree to reconsider this later today or tomorrow. Initiate MiraLAX therapy in the meantime. Note significant leukocytosis on admission, which does persist today. IV Rocephin and IV Flagyl therapy were initiated on 07/24 with additional increase of her previous IV Pepcid and IV Protonix regimen to a high-dose regimen already on 07/24. Patient will maintain nothing by mouth. No indication for NG tube to this point, although this may need to be considered by [facility] physician, which assumes care in the a.m. Repeat CT scan of the abdomen and pelvis depending on her clinical course. Low threshold for possible patient transferred to [place] for further GI consultation , workup, etc.. Note secondary left pleural effusion likely secondary to her acute pancreatitis. No chest pain or anginal type symptoms with no evidence of CHF. Repeat CT shows significant pancreatitis CT of chest show pleural effsuion D/W Dr Richardson Will accept in transfer Qualifiers: Chronicity: acute Pancreatitis type: unspecified pancreatitis type Acute pancreatitis complication: no infection or necrosis Qualified Code(s): K85.90 - Acute pancreatitis without necrosis or infection, unspecified (2) COPD (chronic obstructive pulmonary disease) SNOMED Code(s): 79399130 ICD Code: J44.9 - CHRONIC OBSTRUCTIVE PULMONARY DISEASE, UNSPECIFIED Status : Chronic Priority: Medium Current Visit: Yes Problem Details: Recent pneumonia and hospitalization prior to admission, although improved prior to admission with previously completed course of Z-cecile. No direct known exposure to COVID 19, although the patient did come from [place], [place] in order to avoid infection with positive cases in this area. Per request of administration and longterm staff patient placed in appropriate isolation with negative pressure room and COVID-19 protocol initiated. Note negative initial strep screens and influenza screens. IV Rocephin initiated as above. Note significant fever and leukocytosis since admission. Cultures 2 have been collected with urine specimen to be repeated with additional urine culture. Lactic acid level normal on admission and will be repeated on 07/25. See chest CT report Qualifiers: COPD type: emphysema Emphysema type: panlobular Qualified Code(s): J43.1 - Panlobular emphysema - Discharge Plan *PRESCRIPTION DRUG MONITORING PROGRAM REVIEWED*: Not Applicable *COPY OF PRESCRIPTION DRUG MONITORING REPORT IN PATIENT BERNARDO: Not Applicable Home Medications: Home Meds Albuterol Sulfate [Albuterol Sulfate Hfa] 1 - 2 inh INH Q4H PRN 07/23/19 [ History] Alendronate Sodium 70 mg PO Q7D 07/23/19 [History] Benazepril [Lotensin] 10 mg PO DAILY 07/23/19 [History] Cyclobenzaprine [Flexeril] 10 mg PO TID PRN 07/23/19 [History] Fluticasone/Salmeterol [Advair 250-50 Diskus] 1 inh INH BID 07/23/19 [History] Lactobacillus Rhamnosus GG [Culturelle] 1 cap PO DAILY 07/23/19 [History] Tiotropium [place] [Spiriva Respimat] 2 inh INH DAILY 07/23/19 [History] Forms: ED Department Discharge Referrals: Da Buchanan MD [Primary Care Provider] - - Discharge Summary/Plan Comment DC Time >30 min.: No - Patient Data Vitals - Most Recent: Last Vital Signs Temp 98.2 F 07/26/19 13:31 Pulse 101 H 07/26/19 13:31 Resp 24 H 07/26/19 13:31 BP 118/86 07/26/19 13:31 Pulse Ox 93 L 07/26/19 13:31 Weight - Most Recent: 136 lb I&O - Last 24 hours: Intake & Output 07/26/19 07/26/19 07/26/19 02:59 10:59 18:59 Intake Total 1590 1300 100 Output Total 200 200 100 Balance 1390 1100 0 Lab Results - Last 24 hrs: Laboratory Results - last 24 hr 07/25/19 07/26/19 07/26/19 Range/Units 14:30 07:15 07:15 WBC 16.8 H (4.0-10.2) K/uL RBC 3.52 L (3.77-5.09) M/uL Hgb 10.3 L D (11.7-15.5) g/dL Hct 31.8 L (34.0-46.0) % MCV 90.3 (84.0-98.0) fL MCH 29.3 (28.2-33.3) pg MCHC 32.4 (31.7-36.0) g/dL RDW 12.8 (11.2-14.1) % Plt Count 221 D (150-350) K/uL Neut % (Auto) 89.5 H (45.0-80.0) % Lymph % (Auto) 4.8 L (10.0-50.0) % [place] % (Auto) 5.4 (2.0-14.0) % Eos % (Auto) 0.2 (0.0-5.0) % Baso % (Auto) 0.1 (0.0-2.0) % Neut # (Auto) 15.00 H (1.40-7.00) K/uL Lymph # (Auto) 0.81 (0.50-3.50) K/uL [place] # (Auto) 0.91 (0.00-1.00) K/uL Eos # (Auto) 0.03 (0.00-0.50) K/uL Baso # (Auto) 0.01 (0.00-0.20) K/uL Sodium 139 (136-145) mmol/L Potassium 4.1 (3.5-5.1) mmol/L Chloride 107 (98-107) mmol/L Carbon Dioxide 22.9 (21.0-32.0) mmol/L BUN 20 H (7-18) mg/dL Creatinine 0.63 (0.51-1.17) mg/dL Est Cr Clr Drug Dosing 78.93 mL/min Estimated GFR (MDRD) > 60 mL/min Glucose 131 H (74-106) mg/dL Lactic Acid (0.4-2.0) mmol/L Calcium 8.2 L (8.5-10.1) mg/dL Magnesium 1.7 L (1.8-2.4) mg/dL Total Bilirubin 0.3 (0.2-1.0) mg/dL AST 24 (15-37) U/L ALT 34 (12-78) U/L Alkaline Phosphatase 78 (46-116) IU/L Total Protein 5.2 L (6.4-8.2) g/dL Albumin 2.2 L (3.4-5.0) g/dL Amylase 223 H (25-115) U/L Lipase 536 H (73-393) U/L Specimen Type Urincc Urine Color Dark yellow Urine Appearance Slightly cloudy Urine pH 5.5 (5.0-9.0) Ur Specific Dan[place] >= 1.030 (1.005-1.030) Urine Protein 30 H (NEGATIVE) mg/dL Urine Glucose (UA) Negative (NEGATIVE) mg/dL Urine Ketones 80 H (NEGATIVE) mg/dL Urine Occult Blood Moderate H (NEGATIVE) Urine Nitrite Negative (NEGATIVE) Urine Bilirubin Small H (NEGATIVE) Urine Urobilinogen 0.2 (0.2-1.0) E.U./dL Ur Leukocyte Esterase Negative (NEGATIVE) Urine RBC Not seen /HPF Urine WBC Not seen /HPF Ur Epithelial Cells Not seen /LPF Urine Bacteria Few (NONE TO FEW) /HPF Urine Mucus Moderate H (NEGATIVE) /LPF 07/26/19 Range/Units 07:15 WBC (4.0-10.2) K/uL RBC (3.77-5.09) M/uL Hgb (11.7-15.5) g/dL Hct (34.0-46.0) % MCV (84.0-98.0) fL MCH (28.2-33.3) pg MCHC (31.7-36.0) g/dL RDW (11.2-14.1) % Plt Count (150-350) K/uL Neut % (Auto) (45.0-80.0) % Lymph % (Auto) (10.0-50.0) % [place] % (Auto) (2.0-14.0) % Eos % (Auto) (0.0-5.0) % Baso % (Auto) (0.0-2.0) % Neut # (Auto) (1.40-7.00) K/uL Lymph # (Auto) (0.50-3.50) K/uL [place] # (Auto) (0.00-1.00) K/uL Eos # (Auto) (0.00-0.50) K/uL Baso # (Auto) (0.00-0.20) K/uL Sodium (136-145) mmol/L Potassium (3.5-5.1) mmol/L Chloride (98-107) mmol/L Carbon Dioxide (21.0-32.0) mmol/L BUN (7-18) mg/dL Creatinine (0.51-1.17) mg/dL Est Cr Clr Drug Dosing mL/min Estimated GFR (MDRD) mL/min Glucose (74-106) mg/dL Lactic Acid 0.7 (0.4-2.0) mmol/L Calcium (8.5-10.1) mg/dL Magnesium (1.8-2.4) mg/dL Total Bilirubin (0.2-1.0) mg/dL AST (15-37) U/L ALT (12-78) U/L Alkaline Phosphatase (46-116) IU/L Total Protein (6.4-8.2) g/dL Albumin (3.4-5.0) g/dL Amylase (25-115) U/L Lipase (73-393) U/L Specimen Type Urine Color Urine Appearance Urine pH (5.0-9.0) Ur Specific Dan[place] (1.005-1.030) Urine Protein (NEGATIVE) mg/dL Urine Glucose (UA) (NEGATIVE) mg/dL Urine Ketones (NEGATIVE) mg/dL Urine Occult Blood (NEGATIVE) Urine Nitrite (NEGATIVE) Urine Bilirubin (NEGATIVE) Urine Urobilinogen (0.2-1.0) E.U./dL Ur Leukocyte Esterase (NEGATIVE) Urine RBC /HPF Urine WBC /HPF Ur Epithelial Cells /LPF Urine Bacteria (NONE TO FEW) /HPF Urine Mucus (NEGATIVE) /LPF DAYNA Results - Last 24 hrs: Microbiology 07/25/19 11:50 Aerobic Blood Culture - Preliminary Blood - Venous - Lab Draw NO GROWTH AFTER 1 DAY Anaerobic Blood Culture - Preliminary NO GROWTH AFTER 1 DAY 07/25/19 11:20 Aerobic Blood Culture - Preliminary Blood - Venous NO GROWTH AFTER 1 DAY Anaerobic Blood Culture - Preliminary NO GROWTH AFTER 1 DAY 07/25/19 09:45 Quick Strep Confirmation Culture - Preliminary Throat NO GROUP A STREP ISOLATED REFERENCE RANGE: NEGATIVE Group A Streptococcus Rapid Screen - Final NEGATIVE STREP A SCREEN REFERENCE RANGE: NEGATIVE 07/25/19 11:10 Urine Culture - Final Urine, Clean Catch MIXED VINCENT SUGGESTIVE OF CONTAMINATION. 07/25/19 09:45 Influenza Type A Antigen Screen - Final Nasal, Unspecified NEGATIVE INFLUENZA A VIRUS AG REFERENCE RANGE: NEGATIVE Influenza Type B Antigen Screen - Final NEGATIVE INFLUENZA B VIRUS AG REFERENCE RANGE: NEGATIVE Med Orders - Current: Current Medications Albuterol (Proventil Neb Soln) 2.5 mg INH Q2H PRN PRN Reason: SHORTNESS OF BREATH Last Admin: 07/26/19 05:24 Dose: 2.5 mg Albuterol/Ipratropium (Duoneb 3.0-0.5 Mg/3 Ml) 3 ml NEB Q4HRRT PRN PRN Reason: Dyspnea Last Admin: 07/26/19 11:56 Dose: 3 ml Albuterol/Ipratropium (Duoneb 3.0-0.5 Mg/3 Ml) 3 ml NEB Q6HRRT [facility] Last Admin: 07/26/19 13:27 Dose: 3 ml Bisacodyl (Dulcolax) 10 mg RECTAL BID PRN PRN Reason: Constipation Last Admin: 07/24/19 22:15 Dose: 10 mg Bisacodyl (Dulcolax) 5 mg PO DAILY [facility] Last Admin: 07/26/19 08:20 Dose: 5 mg Cyclobenzaprine HCl (Flexeril) 10 mg PO TID PRN PRN Reason: Muscle Spasm Enoxaparin Sodium (Lovenox) 30 mg SUBCUT DAILY [facility] Last Admin: 07/26/19 08:40 Dose: 30 mg Famotidine (Pepcid) 20 mg IVPUSH Q12H [facility] Last Admin: 07/26/19 08:15 Dose: 20 mg Hydromorphone HCl (Dilaudid) 1 mg IVPUSH Q4H PRN PRN Reason: Pain (severe 7-10) Last Admin: 07/26/19 11:15 Dose: 1 mg Sodium Chloride (Normal Saline) 1,000 mls @ 150 mls/hr IV ASDIRECTED [facility] Last Admin: 07/25/19 11:47 Dose: 150 mls/hr Metronidazole 500 mg/ Premix 100 mls @ 100 mls/hr IV Q8H [facility] Last Admin: 07/26/19 11:49 Dose: 100 mls/hr Ceftriaxone Sodium 1 gm/ (Sodium Chloride) 100 mls @ 200 mls/hr IV Q12H [facility] Last Admin: 07/26/19 13:27 Dose: 200 mls/hr Potassium Chloride/Dextrose/Sod Cl (D5 1/2 Ns W/ 20 Meq/L Kcl) 1,000 mls @ 100 mls/hr IV ASDIRECTED [facility] Last Admin: 07/26/19 09:14 Dose: 100 mls/hr Ketorolac Tromethamine (Toradol) 15 mg IVPUSH Q6H [facility] Stop: 07/27/19 14:01 Last Admin: 07/26/19 13:26 Dose: 15 mg Lactobacillus Rhamnosus (Culturelle) 1 cap PO DAILY [facility] Last Admin: 07/26/19 08:20 Dose: 1 cap Lisinopril (Prinivil) 10 mg PO DAILY [facility] Last Admin: 07/26/19 08:41 Dose: 10 mg Magnesium Hydroxide (Milk Of Magnesia) 30 ml PO BID PRN PRN Reason: Constipation Last Admin: 07/25/19 02:02 Dose: 30 ml Metoclopramide HCl (Reglan) 10 mg IVPUSH Q6H PRN PRN Reason: Nausea/Vomiting Last Admin: 07/26/19 03:32 Dose: 10 mg Mometasone Furoate/Formoterol Fumar (Dulera 200-5 Mcg) 2 puff IH BID [facility] Last Admin: 07/26/19 08:20 Dose: 2 inh Ondansetron HCl (Zofran) 4 mg IVPUSH Q6H PRN PRN Reason: Nausea/Vomiting Last Admin: 07/24/19 14:48 Dose: 4 mg Pantoprazole Sodium (Protonix Iv) 40 mg IVPUSH Q12H [facility] Last Admin: 07/26/19 08:09 Dose: 40 mg Polyethylene Glycol (Miralax) 17 gm PO DAILY [facility] Last Admin: 07/26/19 08:05 Dose: 17 gm Sodium Chloride (Saline Flush) 10 ml FLUSH ASDIRECTED PRN PRN Reason: Keep Vein Open Last Admin: 07/26/19 13:27 Dose: 10 ml Tiotropium [place] (Spiriva Handihaler) 18 mcg INH DAILY [facility] Last Admin: 07/26/19 08:22 Dose: 18 mcg Discontinued Medications Albuterol (Ventolin Hfa) 0 gm INH Q4H PRN PRN Reason: Wheezing Last Admin: 07/25/19 07:55 Dose: 1 inh Alendronate Sodium (Fosamax) 70 mg PO Q7D [facility] Last Admin: 07/24/19 00:53 Dose: Not Given Bisacodyl (Dulcolax) 5 mg PO DAILY PRN PRN Reason: Constipation Last Admin: 07/25/19 07:49 Dose: 5 mg Bisacodyl (Dulcolax) 5 mg PO ONETIME ONE Stop: 07/25/19 12:21 Last Admin: 07/25/19 13:19 Dose: 5 mg Bisacodyl (Dulcolax) Confirm Administered Dose 5 mg .ROUTE .STK-MED ONE Stop: 07/25/19 12:23 Last Admin: 07/25/19 13:00 Dose: Not Given Diatrizoate Meglum/Diatrizoate Sod (Gastrografin 37%) 30 ml PO ONETIME ONE Stop: 07/24/19 10:31 Last Admin: 07/24/19 11:35 Dose: 30 ml Famotidine (Pepcid) 20 mg IVPUSH DAILY [facility] Last Admin: 07/25/19 07:47 Dose: 20 mg Sodium Chloride (Normal Saline) 1,000 mls @ 999 mls/hr IV .BOLUS ONE Stop: 07/24/19 00:27 Last Admin: 07/23/19 23:32 Dose: 999 mls/hr Sodium Chloride (Normal Saline) 1,000 mls @ 200 mls/hr IV .BOLUS ONE Stop: 07/24/19 05:10 Last Admin: 07/24/19 00:51 Dose: 200 mls/hr Ceftriaxone Sodium 1 gm/ (Sodium Chloride) 100 mls @ 200 mls/hr IV [id number] [facility] Last Admin: 07/25/19 13:10 Dose: Not Given Iopamidol (Isovue-300 (61%)) 100 ml IVPUSH ONETIME ONE Stop: 07/24/19 10:01 Last Admin: 07/24/19 11:35 Dose: 100 ml Iopamidol (Isovue-300 (61%)) 100 ml IVPUSH ONETIME ONE Stop: 07/26/19 10:46 Last Admin: 07/26/19 12:53 Dose: 100 ml Ketorolac Tromethamine (Toradol) 30 mg IVPUSH Q6H PRN PRN Reason: Pain (moderate 4-6) Last Admin: 07/25/19 07:41 Dose: 30 mg Lactulose (Cephulac) 20 gm PO ONETIME ONE Stop: 07/26/19 03:12 Last Admin: 07/26/19 03:31 Dose: 20 gm Magnesium Citrate (Citrate Of Magnesia) 296 ml PO ONETIME ONE Stop: 07/24/19 00:10 Last Admin: 07/24/19 03:48 Dose: 296 ml Magnesium Citrate (Citrate Of Magnesia) Confirm Administered Dose 296 ml .ROUTE .STK-MED ONE Stop: 07/24/19 03:43 Last Admin: 07/24/19 03:49 Dose: Not Given Magnesium Citrate (Citrate Of Magnesia) 296 ml PO ONETIME ONE Stop: 07/24/19 14:48 Last Admin: 07/24/19 15:25 Dose: 296 ml Magnesium Citrate (Citrate Of Magnesia) 0 ml PO ONETIME ONE Stop: 07/25/19 20:09 Last Admin: 07/26/19 07:23 Dose: Not Given Morphine Sulfate (Morphine) 2 mg IVPUSH ONETIME ONE Stop: 07/23/19 23:29 Last Admin: 07/23/19 23:31 Dose: 2 mg Morphine Sulfate (Morphine) 2 mg IVPUSH Q2H PRN PRN Reason: Pain Last Admin: 07/25/19 04:21 Dose: 2 mg Ondansetron HCl (Zofran) 4 mg IVPUSH ONETIME ONE Stop: 07/23/19 22:35 Last Admin: 07/23/19 22:44 Dose: 4 mg Pantoprazole Sodium (Protonix Iv) 40 mg IVPUSH DAILY [facility] Last Admin: 07/25/19 07:47 Dose: 40 mg Polyethylene Glycol (Miralax) 17 gm PO ONETIME ONE Stop: 07/24/19 00:11 Last Admin: 07/24/19 03:48 Dose: 17 gm Polyethylene Glycol (Miralax) Confirm Administered Dose 17 gm .ROUTE .STK-MED ONE Stop: 07/24/19 03:42 Last Admin: 07/24/19 03:49 Dose: Not Given Polyethylene Glycol (Miralax) 17 gm PO ONETIME ONE Stop: 07/25/19 20:08 Last Admin: 07/26/19 07:23 Dose: Not Given Promethazine HCl (Phenergan) 12.5 mg IM Q6H PRN PRN Reason: Nausea/Vomiting
== END 2019-07-26 15:00 | DRG 282 ==
LOC: LL.ED 22:22 → UNDOADMOB 23:56 → LL.MS 23:56 → UNDOADMOB 07-24 00:06 → LL.MS 07-24 14:31 → INTOOBSV 07-24 14:31 → OBSVTOIN 07-24 14:31
PROVIDERS: ADMIT Emergency Medicine; ATTEND Family Medicine
PROC: 8E0ZXY6 Isolation (ICD-10-PCS; principal; 2019-07-24)
DX: K85.90 Acute pancreatitis without necrosis or infection, unspecified (principal); J43.1 Panlobular emphysema; K59.09 Other constipation; M54.5 Low back pain; F41.8 Other specified anxiety disorders; J91.8 Pleural effusion in other conditions classified elsewhere; G89.29 Other chronic pain; M15.0 Primary generalized (osteo)arthritis; M41.9 Scoliosis, unspecified; I10 Essential (primary) hypertension; Z87.891 Personal history of nicotine dependence; Z79.899 Other long term (current) drug therapy; Z90.49 Acquired absence of other specified parts of digestive tract
CPT/HCPCS: 36415; 71260; 74019; 74022; 74177; 80053; 81001; 82150; 83605; 83690; 83735; 84484; 85025; 85610; 87040; 87081; 87086; 87430; 87804; 93005; 94640; 96374; 99285-25; A9270-GY; C9113; J0696; J1170; J1650; J1885; J2270; J2405; J2765; J3480; J3490; J7030; J7050; J7613-GY; J7620-GY; Q9963; Q9967